=== PATIENT | female | born 1960 | race Caucasian/White ===

== ENCOUNTER 2018-01-30 07:34 | Outpatient (CLI) | payer OTHER ==
[~2018-01-30 07:34] MED LIST: MICARDIS HCT1 UDTA1 PO
== END 2018-01-30 07:49 | disposition home or self-care (01) ==
LOC: SONOGRAMA 07:34 → MAMO-SONO 08:15
DX: R10.30 Lower abdominal pain, unspecified (principal)

== ENCOUNTER 2018-08-31 08:57 | Outpatient (CLI) | payer OTHER | END 2018-08-31 09:38 | disposition home or self-care (01) | LOC: SONOGRAMA 08:57 | DX: N95.0 Postmenopausal bleeding (principal); R14.0 Abdominal distension (gaseous) ==

== ENCOUNTER 2019-05-07 10:33 | Outpatient (CLI) | payer OTHER | END 2019-05-07 10:45 | disposition home or self-care (01) | LOC: NUCLEAR 10:33 | DX: G90.9 Disorder of the autonomic nervous system, unspecified (principal) | CPT/HCPCS: 78607; A9557 ==

== ENCOUNTER 2019-06-04 08:02 | Outpatient (CLI) | payer OTHER | END 2019-06-04 08:17 | disposition home or self-care (01) | LOC: TOM 08:02 | DX: Z12.11 Encounter for screening for malignant neoplasm of colon (principal) ==

== ENCOUNTER → 2019-06-07 | Outpatient (CLI) | payer OTHER | END | disposition home or self-care (01) | LOC: NUCLEAR 12:45 | DX: M81.0 Age-related osteoporosis without current pathological fracture (principal) ==

== ENCOUNTER 2019-06-21 08:03 | Outpatient (CLI) | payer OTHER | END 2019-06-21 08:34 | disposition home or self-care (01) | LOC: LAB 08:03 | DX: E78.1 Pure hyperglyceridemia (principal); E11.9 Type 2 diabetes mellitus without complications; E78.00 Pure hypercholesterolemia, unspecified; C25.9 Malignant neoplasm of pancreas, unspecified; K85.90 Acute pancreatitis without necrosis or infection, unspecified; D13.2 Benign neoplasm of duodenum; Z12.11 Encounter for screening for malignant neoplasm of colon; K86.81 Exocrine pancreatic insufficiency ==

== ENCOUNTER 2019-06-23 10:42 | Outpatient (CLI) | payer OTHER | END 2019-06-23 13:44 | disposition home or self-care (01) | LOC: MRI 10:42 | DX: R93.3 Abnormal findings on diagnostic imaging of other parts of digestive tract (principal) | CPT/HCPCS: 74182 ==

== ENCOUNTER 2019-07-20 14:18 | Outpatient (CLI) | payer OTHER | END 2019-07-20 15:32 | disposition home or self-care (01) | LOC: MRI 14:18 | DX: M54.5 Low back pain (principal); M54.31 Sciatica, right side | CPT/HCPCS: 72148 ==

== ENCOUNTER 2019-08-18 08:56 | Emergency (ER) | payer OTHER ==
[~2019-08-18] VITALS: Ht 167.6 cm; Wt 76.7 kg
[2019-08-18] MEDS ORDERED: TARKA ER 2-2401 EACH PO ×2 (09:05)
[2019-08-18] MEDS ORDERED: DEXILANT60 MG PO (09:05)
[2019-08-18] MEDS ORDERED: ASA81 MG PO (09:06)
[2019-08-18] MEDS ORDERED: SPIRONOLACTONE1 GM PO (09:07)
== END 2019-08-19 10:00 | disposition home or self-care (01) ==
LOC: ER 08:56
DX: R10.30 Lower abdominal pain, unspecified (principal); I16.0 Hypertensive urgency; I10 Essential (primary) hypertension
CPT/HCPCS: G0378; G0379; 76700; 74176; 93005

== ENCOUNTER 2020-03-10 09:22 | Outpatient (CLI) | payer OTHER ==
[~2020-03-10 09:22] MED LIST changes: +ASA81 MG PO; +DEXILANT60 MG PO; +SPIRONOLACTONE1 GM PO; +TARKA ER 2-2401 EACH PO
== END 2020-03-10 09:32 | disposition home or self-care (01) ==
LOC: SONOGRAMA 09:22 → MAMO-SONO 09:30 → SONOGRAMA 09:32
PROVIDERS: ATTEND Ophthalmology
DX: N95.0 Postmenopausal bleeding (principal)

== ENCOUNTER 2020-12-01 07:42 | Outpatient (CLI) | payer OTHER | END 2020-12-01 08:00 | disposition home or self-care (01) | LOC: MRI 07:42 | PROVIDERS: ATTEND Internal Medicine Cardiovascular Disease | DX: K76.0 Fatty (change of) liver, not elsewhere classified (principal); M85.88 Other specified disorders of bone density and structure, other site | CPT/HCPCS: 74182 ==

== ENCOUNTER 2021-11-12 06:05 | Day surgery (SDC) | payer OTHER | END 2021-11-12 12:10 | disposition home or self-care (01) | LOC: AMB-ENDOS 06:05 | PROVIDERS: ATTEND Internal Medicine Gastroenterology | DX: K21.9 Gastro-esophageal reflux disease without esophagitis (principal); Z12.11 Encounter for screening for malignant neoplasm of colon; Z88.0 Allergy status to penicillin; I10 Essential (primary) hypertension; Z79.82 Long term (current) use of aspirin; Z20.822 Contact with and (suspected) exposure to COVID-19 ==

== ENCOUNTER 2022-02-01 08:05 | Outpatient (CLI) | payer OTHER | END 2022-02-01 08:24 | disposition home or self-care (01) | LOC: MRI 08:05 | PROVIDERS: ATTEND Ophthalmology | DX: K86.89 Other specified diseases of pancreas (principal) | CPT/HCPCS: 74183 ==

== ENCOUNTER 2023-01-13 07:55 | Outpatient (CLI) | payer OTHER | END 2023-01-13 07:58 | disposition home or self-care (01) | LOC: MRI 07:55 | DX: K86.81 Exocrine pancreatic insufficiency (principal); K86.89 Other specified diseases of pancreas; K76.0 Fatty (change of) liver, not elsewhere classified; K75.81 Nonalcoholic steatohepatitis (NASH); N73.9 Female pelvic inflammatory disease, unspecified; R10.2 Pelvic and perineal pain; N95.0 Postmenopausal bleeding | CPT/HCPCS: 72197; 74183 ==

== ENCOUNTER 2023-05-30 07:32 | Outpatient (CLI) | payer OTHER | END 2023-05-30 07:37 | disposition home or self-care (01) | LOC: NUCLEAR 07:32 | PROVIDERS: ATTEND Internal Medicine | DX: I25.118 Atherosclerotic heart disease of native coronary artery with other forms of angina pectoris (principal); I11.9 Hypertensive heart disease without heart failure ==

== ENCOUNTER 2024-04-05 07:41 | Outpatient (CLI) | payer OTHER | END 2024-04-05 07:58 | disposition home or self-care (01) | LOC: MRI 07:41 | DX: K86.89 Other specified diseases of pancreas (principal); N92.1 Excessive and frequent menstruation with irregular cycle; K76.0 Fatty (change of) liver, not elsewhere classified | CPT/HCPCS: 72197; 74183 ==

== ENCOUNTER 2024-06-21 09:06 | Outpatient (CLI) | payer OTHER | END 2024-06-21 09:13 | disposition home or self-care (01) | LOC: SONOGRAMA 09:06 | PROVIDERS: ATTEND Internal Medicine Cardiovascular Disease | DX: E03.8 Other specified hypothyroidism (principal) ==

== ENCOUNTER 2025-04-11 08:18 | Outpatient (CLI) | payer OTHER | END 2025-04-11 08:30 | disposition home or self-care (01) | LOC: MRI 08:18 | PROVIDERS: ATTEND Ophthalmology | DX: K86.89 Other specified diseases of pancreas (principal); K76.0 Fatty (change of) liver, not elsewhere classified; N95.0 Postmenopausal bleeding; N83.209 Unspecified ovarian cyst, unspecified side | CPT/HCPCS: 72197; 74183 ==